=== PATIENT | male | born 1950 | race Caucasian/White ===

== ENCOUNTER 2016-08-07 05:00 | Inpatient (IN) | payer MEDICARE, BC ==
[2016-07-25 12:04] LABS: BASOPHILS 0.5 %; BASOPHILS ABSOLUTE 0.03 10/3/uL (0.0-0.16); EOSINOPHILS 3.4 %; EOSINOPHILS ABSOLUTE 0.21 10/3/uL (0.0-0.53); HEMATOCRIT 37.3 % (40.0-51.0); HEMOGLOBIN 13.4 g/dL (13.6-17.8); IMMATURE GRANULOCYTES 0.3 %; IMMATURE GRANULOCYTES ABSOLUTE 0.02 10/3/uL (0.0-0.11); LYMPHOCYTES 36.9 %; LYMPHOCYTES ABSOLUTE 2.26 10/3/uL (0.67-4.30); MEAN CORPUS HGB CONC 35.9 g/dL (32.0-36.0); MEAN CORPUSCULAR HEMOGLOB 30.8 pg (26.0-34.0); MEAN CORPUSCULAR VOLUME 85.7 fL (80-100); MEAN PLATELET VOLUME 10.6 fL (9.2-13.0); MONOCYTES ABSOLUTE 0.49 10/3/uL (0.21-1.20); NEUTROPHILS 50.9 %; NEUTROPHILS ABSOLUTE 3.12 10/3/uL (2.02-8.40); PLATELET COUNT 227 10/3/uL (150-400); RBC DISTRIBUTION WIDTH 12.5 % (12.0-16.0); RED CELL COUNT 4.35 10/6/uL (4.7-6.1); WHITE BLOOD CELLS 6.1 10/3/uL (4.5-10.5)
[2016-07-25 12:09] LABS: MANUAL DIFF NO %
[2016-07-25 12:11] LABS: INTERNATIONAL NORMAL RATI 1.7 UNITS (-)
[2016-07-25 12:12] LABS: PROTIME (NOT ORD) 19.6 SEC (12.0-14.5)
[2016-07-25 12:24] LABS: A/G RATIO 1.3 (0.7-1.9); ALBUMIN 3.9 G/DL (3.5-5.0); ALKALINE PHOSPHATASE 61 U/L (45-117); BUN (BLOOD UREA NITROGEN) 15 MG/DL (6-23); CALCIUM, SERUM 8.6 MG/DL (8.5-10.4); CHLORIDE, SERUM 102 MMOL/L (96-112); CO2 (CARBON DIOXIDE) 31 MMOL/L (24-34); CREATININE 1.28 MG/DL (0.70-1.30); GFR AFRICAN AMERICAN 68 ML/MIN (>=60); GFR NON AFRICAN AMERICAN 58 ML/MIN (>=60); GLUCOSE, SERUM 230 MG/DL (60-99); POTASSIUM, SERUM 4.2 MMOL/L (3.5-5.3); SGOT(AST) 18 U/L (5-40); SGPT(ALT) 33 U/L (5-65); SODIUM, SERUM 140 MMOL/L (135-148); TOTAL BILIRUBIN 0.8 MG/DL (0-1.2); TOTAL PROTEIN 6.9 G/DL (6.0-8.5)
[2016-07-25 12:58] LABS: ASCORBIC ACID (UR NOT ORDER) NEG (NEG); BILIRUBIN, URINE NEGATIVE (NEG); KETONE, URINE NEGATIVE (NEG); LEUKOCYTE ESTERASE(NOT OR TRACE (NEG); WBC (NOT ORDERED) (RFLEX) 4 (0-5)
--- NOTE | ~2016-08-07 | OP ---
Record Of Operation [facility] [address] [place]. [address] NAME: LAKSHMI CARRANZA : 52 STATUS : ADM IN [facility]#: [id number] AGE: 66 ADM/REG DATE : 08/07/16 MR#: [id number] REPORT SERV DATE: 08/09/16 DICTATED BY: JOSE BARRETO DATE: 08/09/16 REPORT STATUS : Draft TRANSCRIBED BY: MODJason DATE: 08/09/16 DATE OF PROCEDURE: 08/07/2016 PREOPERATIVE DIAGNOSIS: Severe left knee degenerative joint disease. POSTOPERATIVE DIAGNOSIS: Severe left knee degenerative joint disease. OPERATION: Posterior stabilized total knee replacement, cemented. SIDE: Left. SIZE: See chart. ANESTHESIA: See chart. ESTIMATED BLOOD LOSS: About 10 mL. TOURNIQUET TIME: Approximately 1 hour and 10 minutes. COMPLICATIONS: None. SPECIMENS: Articular surfaces. DESCRIPTION OF PROCEDURE: The patient was appropriately identified and marked. The operative side agreed with the consent form and it was checked by all members of the surgical team. The patient was taken to the operating room and anesthesia was induced per the anesthesiologist. The patient was carefully transferred to the operating table without incident. The patient received appropriate prophylactic antibiotics and a Escalante catheter was placed in the standard sterile technique. The patient was then carefully positioned, padded, prepped and draped in the normal sterile fashion. The operative leg had been appropriately identified and checked by all members of the operating team against the consent form and found to be the correct limb. The patient's lower extremity was then exsanguinated with an Ronan wrap and a tourniquet was inflated to 350 mm/Hg. Sharp dissection was carried out through a straight midline longitudinal incision and electrocautery through the fat. Sharp quad splitting approach was carried out between about the medial 10 percent of the tendon and the lateral 90 percent of the tendon and down around the medial aspect of the patella and then 1 cm medial to the tibial tubercle. The patella was carefully everted and the posterior fat pad was excised and gentle MCL elevation was carried out off the proximal medial tibia subperiosteally. IM guide was placed in the distal femur after using the appropriate drill. The distal femoral cutting guide was held with 2 pins and the distal cut made. Meniscal fragments and the ACL and the PCL were excised with electrocautery, carefully staying anterior to the posterior fat pad. The proximal tibial alignment guide was set appropriately and the proximal tibial cut made. Spacer block verified full extension with excellent mediolateral balance. Sizing guide was used to place 2 drill holes Record Of Operation [facility] [address] [place] [place]. [address] NAME: LAKSHMI CARRANZA : 52 STATUS : ADM IN [facility]#: [id number] AGE: 66 ADM/REG DATE : 08/07/16 MR#: [id number] REPORT SERV DATE: 08/09/16 DICTATED BY: JOSE BARRETO DATE: 08/09/16 REPORT STATUS : Draft TRANSCRIBED BY: MODJason DATE: 08/09/16 in the distal femur and the four-in-one cutting block was then placed, impacted and checked to be sure it would not notch with an michael wing and it was held with 2 pins. The anterior cut, posterior cut, anterior chamfer and posterior chamfer cuts were made. The pins were removed and the block was removed. A posterior release was carried out with a curved 3/4 inch osteotome staying right on the bone posteriorly. The box-cut guide was then placed, impacted and held with 2 pins and a reciprocating saw was used to cut out the box. With the trial components in place, there was excellent medial/lateral balance. The patella was then measured with a caliper, cut first with an oscillating saw and then reamed with a patella reamer. With the trial patella in place, there was excellent patellar tracking. Rotation was marked on the tibia and the tibia prepared with a drill and stamp chisel. All surfaces were then copiously irrigated with pulsatile lavage, carefully dried and then vacuum-mixed cement was pressurized with a cement gun in a doughy phase. The tibial component was placed, impacted and excess cement was removed. The cement was then pressurized in the femur and placed on the posterior runners of the femoral component, which was placed, impacted and excess cement removed and the knee was brought out into extension on a trial spacer. The cement was then pressurized in the patella. Patellar component was then placed, clamped and excess cement was removed. Once all cement was hardened, the knee was taken through range of motion. Further extruded cement was removed with a small osteotome. Then based on the trial inserts, we decided on the actual insert, which was placed in the standard fashion and held with a locking mechanism. The knee was then copiously irrigated and then closed in a layered fashion over a medium Hemovac drain superolaterally with interrupted #1 in the deep fascia, 2-0 subcutaneous and andrea in the skin. The wounds were dressed sterilely and the tourniquet was deflated. The patient was then awakened and taken to the postanesthesia care unit without incident. All counts were correct at the end of the case. WTB/MODL Loy Barreto M.D. / [id number] CC: Berto Nielson D.O.
[~2016-08-07 05:00] MED LIST: ALLEGRA180 PO; AMARYL2 PO; AMARYL4 PO; CENTRUM TAB1 TAB PO; COREG12 PO; COREG6 PO; CRESTOR20 MG PO; FIBER THERAPY PO; FIBERCON PO; FLEX PO; FLONASE NAS; FORTAMET500 MG PO; GLUCOPHXR PO; IMDUR ER PO; IMDUR30 PO; LISINOPRIL40 MG PO; METHOC750B PO; MULTIPLE VIT PO; MULTIVITAMI1 PO; NORV5 PO; PREV30 PO; PRIN20 PO; ROXICET1 TAB PO; SINGULAIR1 PO; ULTRAM50 PO; VERAMYST27.5 MCG NAS; XARELTO PO; XARELTO20 MG PO; ZYRTEC ALLGY10 MG PO
[2016-08-08 05:59] LABS: HEMATOCRIT 30.9 % (40.0-51.0)
[2016-08-08 06:06] LABS: INTERNATIONAL NORMAL RATI 1.3 UNITS (-); PROTIME (NOT ORD) 15.6 SEC (12.0-14.5)
[2016-08-08 06:11] LABS: BUN (BLOOD UREA NITROGEN) 14 MG/DL (6-23); CALCIUM, SERUM 8.5 MG/DL (8.5-10.4); CHLORIDE, SERUM 102 MMOL/L (96-112); CO2 (CARBON DIOXIDE) 29 MMOL/L (24-34); CREATININE 1.12 MG/DL (0.70-1.30); GFR AFRICAN AMERICAN 79 ML/MIN (>=60); GFR NON AFRICAN AMERICAN 69 ML/MIN (>=60); POTASSIUM, SERUM 4.2 MMOL/L (3.5-5.3); SODIUM, SERUM 138 MMOL/L (135-148)
[2016-08-08 06:12] LABS: GLUCOSE, SERUM 136 MG/DL (60-99)
[2016-08-09 05:38] LABS: BASOPHILS 0.4 %; BASOPHILS ABSOLUTE 0.03 10/3/uL (0.0-0.16); EOSINOPHILS 3.4 %; EOSINOPHILS ABSOLUTE 0.26 10/3/uL (0.0-0.53); HEMOGLOBIN 9.9 g/dL (13.6-17.8); IMMATURE GRANULOCYTES 0.1 %; IMMATURE GRANULOCYTES ABSOLUTE 0.01 10/3/uL (0.0-0.11); LYMPHOCYTES 28.9 %; LYMPHOCYTES ABSOLUTE 2.23 10/3/uL (0.67-4.30); MEAN CORPUS HGB CONC 36.3 g/dL (32.0-36.0); MEAN CORPUSCULAR HEMOGLOB 30.6 pg (26.0-34.0); MEAN CORPUSCULAR VOLUME 84.3 fL (80-100); MEAN PLATELET VOLUME 10.6 fL (9.2-13.0); MONOCYTES 14.1 %; MONOCYTES ABSOLUTE 1.09 10/3/uL (0.21-1.20); NEUTROPHILS 53.1 %; NEUTROPHILS ABSOLUTE 4.09 10/3/uL (2.02-8.40); RBC DISTRIBUTION WIDTH 12.8 % (12.0-16.0); WHITE BLOOD CELLS 7.7 10/3/uL (4.5-10.5)
[2016-08-09 05:46] LABS: HEMATOCRIT 27.3 % (40.0-51.0); MANUAL DIFF NO %; PLATELET COUNT 120 10/3/uL (150-400); RED CELL COUNT 3.24 10/6/uL (4.7-6.1)
[2016-08-09 05:47] LABS: INTERNATIONAL NORMAL RATI 1.2 UNITS (-); PROTIME (NOT ORD) 15.4 SEC (12.0-14.5)
[2016-08-09 05:57] LABS: BUN (BLOOD UREA NITROGEN) 17 MG/DL (6-23); CALCIUM, SERUM 8.6 MG/DL (8.5-10.4); CHLORIDE, SERUM 102 MMOL/L (96-112); CO2 (CARBON DIOXIDE) 29 MMOL/L (24-34); CREATININE 1.14 MG/DL (0.70-1.30); GFR AFRICAN AMERICAN 78 ML/MIN (>=60); GFR NON AFRICAN AMERICAN 67 ML/MIN (>=60); GLUCOSE, SERUM 148 MG/DL (60-99); POTASSIUM, SERUM 4.4 MMOL/L (3.5-5.3); SODIUM, SERUM 139 MMOL/L (135-148)
[2016-08-09] MEDS ORDERED: OXYCOD PO (10:32)
[2016-08-09] MEDS ORDERED: ZOFRAN4 PO (10:32)
[2016-08-09] MEDS ORDERED: C5 (10:32)
== END 2016-08-09 12:36 | disposition home or self-care (01) | DRG 470 ==
LOC: SDC/OF 05:00 → PACU 09:08 → 3JRC 10:37
PROVIDERS: Specialist
PROC: 3E0T3CZ (ICD-10-PCS; 2016-08-07)
PROC: 0SRD0J9 Replacement of Left Knee Joint with Synthetic Substitute, Cemented, Open Approach (ICD-10-PCS; principal; 2016-08-07 06:30)
DX: M17.12 Unilateral primary osteoarthritis, left knee (principal); E11.22 Type 2 diabetes mellitus with diabetic chronic kidney disease; I48.2 Chronic atrial fibrillation; Z79.899 Other long term (current) drug therapy; Z88.0 Allergy status to penicillin; Z88.8 Allergy status to other drugs, medicaments and biological substances; Z91.040 Latex allergy status; E78.5 Hyperlipidemia, unspecified; K21.9 Gastro-esophageal reflux disease without esophagitis; G47.33 Obstructive sleep apnea (adult) (pediatric); Z79.01 Long term (current) use of anticoagulants; I35.0 Nonrheumatic aortic (valve) stenosis; I12.9 Hypertensive chronic kidney disease with stage 1 through stage 4 chronic kidney disease, or unspecified chronic kidney disease; N18.2 Chronic kidney disease, stage 2 (mild)
CPT/HCPCS: 71020; 80048; 80053; 81001; 82962; 85014; 85018; 85025; 85610; 87641; 88305; 88311; 93005; 97116-GP; 97150-GP; 97161-GP; 97165-GO; A9270-GY; C1776; G8978-CK-GP; G8979-CH-GP; J0690; J1885; J2250; J2270; J2274; J2710; J2795; J3010